=== PATIENT | male | born 1985 | race Caucasian/White ===

== ENCOUNTER 2023-01-15 12:39 | Emergency (ER) | payer BC, OTHER ==
[2023-01-15] MEDS ORDERED: ACETAMINOPHEN 500 MG TABLET (FP) PO ONE (12:56)
[2023-01-15 12:58] VITALS: BP 124/80; PULSE 80; RESP 18; TEMP 97.8; BMI 31.6
[2023-01-15] MEDS ORDERED: ACETAMINOPHEN 500 MG TABLET (FP) ONE (13:00)
[2023-01-15 13:36] LABS: HEMATOCRIT 39.4 % (35.4-49); HEMOGLOBIN 13.3 G/dL (11.7-16.9); MCH 32.3 pg (25.7-33.7); MCHC 33.9 g/dl (32.0-35.9); MEAN CELL VOLUME 95.3 fl (80-96); MEAN PLT VOLUME 8.3 fl (7.5-11.1); PLATELET COUNT 221.2 10^3/uL (134-434); RBC 4.13 10^6/uL (4.00-5.60); RDW 14.3 % (11.9-15.9); WHITE BLOOD COUNT 7.7 10^3/uL (4.0-10.8)
[2023-01-15 13:45] LABS: ALBUMIN 3.9 g/dl (3.4-5.0); BILIRUBIN,TOTAL 0.9 mg/dl (0.2-1); CREATININE 0.9 mg/dl (0.55-1.3); POTASSIUM 4.1 mmol/L (3.5-5.1); TOT PROT 6.6 g/dl (6.4-8.2)
== END 2023-01-15 15:35 | disposition home or self-care (01) ==
LOC: FER 12:39
DX: M25.511 Pain in right shoulder (principal); M25.551 Pain in right hip; S42.101A Fracture of unspecified part of scapula, right shoulder, initial encounter for closed fracture; R20.2 Paresthesia of skin; S30.0XXA Contusion of lower back and pelvis, initial encounter; S20.229A Contusion of unspecified back wall of thorax, initial encounter; W10.8XXA Fall (on) (from) other stairs and steps, initial encounter; Y93.01 Activity, walking, marching and hiking
CPT/HCPCS: 36415; 71260-TC; 73010-TC-FY; 73030-TC-RT-FY; 74177-TC; 80053; 81003; 85027; 87086; 99285-25; Q9967